=== PATIENT | female | born 1995 | race Caucasian/White ===

== ENCOUNTER 2017-06-26 01:00 | Emergency (ER) | payer BC, OTHER ==
[~2017-06-26] VITALS: Ht 157.5 cm; Wt 74.0 kg
[2017-06-26 01:04] VITALS: TEMP 36.3; Ht 157.5 cm; Wt 74.0 kg
[2017-06-26] MEDS ORDERED: AMPH20CA3 PO (01:54)
[2017-06-26] MEDS ORDERED: IBUP-1277 PO (01:54)
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
[2017-06-26 02:49] VITALS: BP 137/78; PULSE 84; O2SAT 99
== END 2017-06-26 02:54 | disposition home or self-care (01) ==
LOC: C.EDB 01:01
DX: T59.3X1A Toxic effect of lacrimogenic gas, accidental (unintentional), initial encounter (principal); Z79.899 Other long term (current) drug therapy; J45.909 Unspecified asthma, uncomplicated

== ENCOUNTER 2017-08-29 04:06 | Emergency (ER) | payer OTHER ==
[~2017-08-29] VITALS: Ht 154.9 cm; Wt 71.8 kg
[~2017-08-29 04:06] MED LIST: AMPH20CA3 PO; IBUP-1277 PO
[2017-08-29 04:10] VITALS: Ht 154.9 cm; Wt 71.8 kg
[2017-08-29 04:38] VITALS: BP 152/77; PULSE 104; TEMP 36.4; O2SAT 100
--- NOTE | 2017-08-29 04:45 | EMERGENCY ROOM VISIT NOTE ---
History Report prepared by Shiva: Janet Rodriguez Under the Supervision of: Anant GarciaO. First contact with patient: 04:16 Chief Complaint: OTHER COMPLAINT Stated Complaint: TINGLING/NUMBNESS IN FEET AND LWR LEGS,BRUISING/RE History of Present Illness The patient is a 22 year old female who presents to the Emergency Room with complaints of persistent discomfort in her feet that began prior to arrival. She reports that she woke up from her sleep due to pain in her feet, noting that she noticed purple spots at the bottom of her feet. The patient states that she felt nauseous earlier today, but denies any recent illnesses. She denies wearing new shoes, socks, using a new detergent, or any other recent changes to her lifestyle. Source of History: patient Onset: prior to arrival Position: foot (bilateral) Quality: other (discoloration) Timing: other (persistent) Note: Associated symptoms includes: feet pain Review of Systems See HPI for pertinent positives & negatives. A total of 10 systems reviewed and were otherwise negative. Past Medical & Surgical Medical Problems: (1) ADHD (2) Asthma (3) Kidney infection (4) Seasonal allergic reaction Family History Cancer Social History Smoking Status: Never Smoker Smokeless Tobacco Use: No Alcohol Use: occasionally (1-2 times a week) Drug Use: none Marital Status: single Housing Status: lives with roommate Occupation Status: [employer] student Current/Historical Medications Scheduled Amphetamine-Dextroamphetamine 20MG (Adderall Xr 20MG), 20 MG PO DAILY Scheduled PRN Ibuprofen (Advil), 200-600 MG PO Q4H PRN for Pain Allergies Coded Allergies: Latex2 -Systemic Allergic Response (Verified Allergy, Severe, HIVES, ) Penicillins (Verified Allergy, Severe, HIVES, 08/29/17) Aspirin (Verified Allergy, Intermediate, HIVES, 08/29/17) Physical Exam Vital Signs Date Time Temp Pulse Resp B/P (MAP) Pulse Ox O2 Delivery O2 Flow Rate FiO2 08/29/17 04:38 36.4 104 20 152/77 100 08/29/17 04:10 36.4 104 20 152/77 100 Room Air Physical Exam Lower extremities: pink/purple discoloration to plantar surfaces of her feet, right greater than left. There is no edema noted to the feet. There are easily palpable dorsalis pedis and posterior tibial pulses. The patient had range of motion of the foot without difficulty. Medical Decision & Procedures ED Course 0419: Past medical records reviewed. The patient was evaluated in room B3. I examined the plantar surfaces of her feet. I used an alcohol swab which began to removed the staining. There was pink/purple noted on the alcohol swabs. We discussed what could be the possible cause of this discoloration. She could not remember wearing new socks or shoes or slippers. The pain/purple stains on the feet did not appear to be pathogenic but are actually some sort of ink. She was told return to the emergency department if she noticed any discoloration to her skin and other locations on her body. She should also return if she develops fevers or increased extremity pain. the patient was discharged home. Medical Decision The patient is a 22 year old female who presents to the ED with discomfort in her feet. Differential diagnosis includes purpura, petechiae, contusion, and allergic reaction. This is a 22-year-old female patient who awoke with pain in her feet. She looked at the bottoms of her feet and noticed that there was some discoloration to them. There is pink/purple ink noted to the bottom of her feet. This could be wiped away with an alcohol swab. I am unsure why the patient has acute bilateral plantar foot pain. She denies any new shoes or socks. She was told return to the emergency department for any worsening symptoms. Medication Reconcilliation Current Medication List: was personally reviewed by me Blood Pressure Screening Patient's blood pressure: Elevated blood pressure Blood pressure disposition: Elevated BP felt to be situational Impression Primary Impression: Bilateral foot pain Scribe Attestation The scribe's documentation has been prepared under my direction and personally reviewed by me in its entirety. I confirm that the note above accurately reflects all work, treatment, procedures, and medical decision making performed by me. Departure Information Dispostion Home / Self-Care Referrals No Doctor, Assigned (PCP) Forms HOME CARE DOCUMENTATION FORM, IMPORTANT VISIT INFORMATION, WORK / SCHOOL INSTRUCTIONS Patient Instructions My [facility] Additional Instructions If you develop worsening foot pain or skin discoloration anywhere else, return to the ER. [facility] up with [facility] if pain continues.' Use tylenol or motrin for pain
== END 2017-08-29 04:40 | disposition home or self-care (01) ==
LOC: C.EDB 04:07
DX: M79.671 Pain in right foot (principal); M79.672 Pain in left foot; F90.9 Attention-deficit hyperactivity disorder, unspecified type; J45.909 Unspecified asthma, uncomplicated; Z80.9 Family history of malignant neoplasm, unspecified; Z79.899 Other long term (current) drug therapy; Z88.0 Allergy status to penicillin; Z88.6 Allergy status to analgesic agent; Z91.040 Latex allergy status